=== PATIENT | male | born 1990 | race Caucasian/White ===

== ENCOUNTER 2020-12-05 18:54 | Emergency (ER) | payer OTHER, SELFPAY ==
[2020-12-05 18:54] VITALS: BP 124/80; PULSE 76; RESP 15; TEMP 36.3; O2SAT 99; BMI 28.2
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
== END 2020-12-05 19:33 | disposition home or self-care (01) ==
LOC: ED 19:27
PROVIDERS: Emergency Provider Emergency Medicine
DX: S83.91XA Sprain of unspecified site of right knee, initial encounter (principal); W19.XXXA Unspecified fall, initial encounter; Z87.891 Personal history of nicotine dependence
CPT/HCPCS: 99282